=== PATIENT | male | born 1980 | race Caucasian/White ===

== ENCOUNTER 2023-12-19 11:47 | Outpatient (AMB) | payer OTHER, SELFPAY ==
--- NOTE | 2023-12-19 11:51 | MHC.OFFVIS ---
Vital Signs 12/19/23 11:53 Height 5 ft 10 in Weight 255 lb 11.779 oz BMI 36.7 BP 119/87 Blood Pressure Location Lt brachial Position Sitting Pulse 68 Intake Visit Reasons: Colonoscopy Screening Allergies No Known Allergies Allergy (Verified 12/19/23 12:00) HPI HPI Colonoscopy Screening: Details: 43-year-old male here for preprocedural meeting to discuss a screening colonoscopy. He is referred by [facility] in [facility] ELVA Asthma Allergic rhinitis Obesity-BMI greater than 35 Subclinical hypothyroid High cholesterol Hypertension Impaired fasting glucose Anxiety disorder * SURGICAL HISTORY Vasectomy Dental surgery Colonoscopy 5 year ago neg study * ALLERGIES:NKDA * Wengo LABS: none TODAY'S VISIT He had a prior scope 5 year ago that was negative and he HAS a FHX of FATHER and paternal uncle with CRC. No bowel or upper GI problems. He has ELVA and asthma that is well controlled but no cardiac problems. No ID problems. There are no prior problems with anesthesia or sedation.. Again his father and his paternal uncle both had colorectal cancer in their early to mid 70s. [facility], [facility] Surgical History H/O colonoscopy History of dental surgery H/O vasectomy Family History Father Colon cancer Mother Pancreatic cancer Paternal Uncle Colon cancer Maternal Grandmother Breast cancer Paternal Aunt Breast cancer Social History Alcohol intake: current Alcohol intake frequency: holidays/special occasions only Patient Tobacco Use Status: Former Tobacco user Non Cigarette Tobacco use how lon years ago /entered 12/19/23 Substance Use Type: Marijuana Review of Systems Const Denies fatigue, Denies fever(s), Denies night sweats, Denies poor appetite and Denies weight loss Eyes Details: glasses Reports requires corrective lenses ENT Reports Normal hearing present, Denies dental pain, Denies dysphagia, Denies hearing loss, Denies mouth pain, Denies odynophagia, Denies throat swelling, Denies tongue swelling and Reports other (Dentition adequate) Card Reports no additional complaints Resp Reports no additional complaints GI Details: Denies abdominal pain, Denies melena, Denies bloating, Denies hematochezia, Denies constipation, Denies GI cramping, Denies dysphagia, Denies excessive flatus, Denies early satiety, Denies heartburn, Denies diarrhea, Denies nausea, Denies odynophagia, Denies vomiting and Denies hematemesis Skin/Breast Denies pruritus, Denies lesions, Denies rash and Denies jaundice Neuro Reports Normal hearing present and Denies Abnormal speech present Endo Denies fatigue Aller/Immun Denies throat swelling and Denies tongue swelling Physical Exam Vital Signs: Last Vital Signs Pulse 68 12/19/23 11:53 BP 119/87 12/19/23 11:53 BMI result Body Mass Index 36.7 Const General: cooperative, no acute distress, well developed and well groomed Nutritional Appearance: well nourished and obese centrally obese Orientation/consciousness: oriented to person, oriented to place and oriented to time Limitations: No language barrier HEENT Head: Yes normocephalic and Yes atraumatic Eyes General: appearance normal, both eyes and all related structures Pupils: Equal, round and reactive pupils present Neck Neck: Yes normal visual inspection and Yes no lymphadenopathy Thyroid: Thyroid normal Resp Effort & Inspection: normal respiratory effort and able to speak in complete sentences Auscultation: clear to auscultation bilaterally Cardio Rate: regular rate Rhythm: regular rhythm Heart sounds: Normal, physiologic split S2 sound present Peripheral pulses: radial pulses present and posterior tibial pulses present GI Inspection: No distended, No Abdominal panniculus present and Yes obesity Palpation (GI): Soft to palpation, nontender, no guarding, not rigid and No hepatosplenomegaly present Percussion: Yes normal to percussion Auscultation: normal bowel sounds Rectal Exam - Male: Yes deferred Skin General skin exam: no rashes or lesions noted, turgor normal, skin not dry, no jaundice, No spider nevi and no striae Rashes: no rashes Nails: normal Neuro General: oriented to person, oriented to place and oriented to time Cranial nerves: Yes Equal, round and reactive pupils present and Yes Normal hearing present Speech: No Abnormal speech present Extrem General: Yes normal to inspection, No clubbing, No cyanosis and No edema Psych Appearance: grossly normal and well kempt Mental Status: mental status grossly normal Speech and movement: Normal speech and movement present Affect: normal affect Attitude: cooperative Thought process: Normal thought process present and not confabulating Thought content: Normal thought content present Insight: Fair insight present (Psych) Judgement: Fair judgement present (Psych) Assessment & Plan Assessment & Plan (1) Pre-op examination: Code(s): Z01.818 - Encounter for other preprocedural examination Category: Medical (2) ELVA (obstructive sleep apnea): Code(s): G47.33 - Obstructive sleep apnea (adult) (pediatric) Category: Medical (3) Family history of colon cancer in father: Comment: father and his paternal uncle both had colorectal cancer in their early to mid 70s Code(s): Z80.0 - Family history of malignant neoplasm of digestive organs Category: Medical Plan He had a prior scope 5 year ago that was negative and he HAS a FHX of FATHER and paternal uncle with CRC. No bowel or upper GI problems. He has ELVA and asthma that is well controlled but no cardiac problems. No ID problems. There are no prior problems with anesthesia or sedation.. Again his father and his paternal uncle both had colorectal cancer in their early to mid 70s. Orders: Orders Colonoscopy - GI Use Only 12/19/23 Z01.818 - Encounter for other preprocedural examination, Z80.0 - Family history of malignant neoplasm of digestive organs Medications: New sodium,potassium,mag sulfates 17.5-3.13-1.6 gram (Suprep Bowel Prep Kit) 480 mL orally; FOR COLONOSCOPY PREP 354 mL 0RF Coding Level of Care Code New Pt Level 3 (73712) Diagnoses Pre-op examination Z01.818 ELVA (obstructive sleep apnea) G47.33 Family history of colon cancer in father Z80.0
--- NOTE | 2023-12-19 11:51 | MHC.OFFVIS ---
Vital Signs 12/19/23 11:53 Height 5 ft 10 in Weight 255 lb 11.779 oz BMI 36.7 BP 119/87 Blood Pressure Location Lt brachial Position Sitting Pulse 68 Intake Visit Reasons: Colonoscopy Screening Intake Note: Mamadou presents in office for colonoscopy screening. CC: Patient reports that his last colonoscopy was 5 years ago at [facility] [place] [facility]. He has family hx of colon cancer. 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
[2023-12-19 11:53] VITALS: BP 119/87; PULSE 68; BMI 36.7
== END 2023-12-19 12:42 | disposition home or self-care (01) ==
PROVIDERS: Visit Provider Nurse Practitioner
DX: Z01.818 Encounter for other preprocedural examination (principal); G47.33 Obstructive sleep apnea (adult) (pediatric); Z80.0 Family history of malignant neoplasm of digestive organs
CPT/HCPCS: 99203

== ENCOUNTER → 2023-12-19 11:47 | Outpatient (BNVA) | payer OTHER, SELFPAY | PROVIDERS: Visit Provider Nurse Practitioner ==

== ENCOUNTER 2024-02-25 09:46 | Day surgery (SDC) | payer OTHER, SELFPAY ==
[2024-02-21 08:59] VITALS: BMI 36.6
[2024-02-25 10:21] VITALS: BMI 35.9
[2024-02-25 10:39] VITALS: BP 137/84; PULSE 85; RESP 15; TEMP 36.9; O2SAT 97
[2024-02-25] MEDS: Lactated Ringers 1,000 ML 50 ML IVCONT (10:48)
--- NOTE | 2024-02-25 10:56 | MHC.SHP ---
Pre-Procedural Eval Section A - 24 Hr Update-Section A only Date of Service: 02/25/24 The patient is an INPATIENT: No The patient has been examined within 24 hours of the surgical procedure. The History & Physical has been completed within 30 days and I have reviewed it.: No Section B - Complete if H&P > 30 days Chief Complaint: Screening, famiy hx of colon cancer Relevant Family History (Specify if Yes): Yes Relevant Social History: Tobacco Use (Former smoker) Present Medications: see Short Stay Collaborative assessment Medical History: Significant History (ELVA Asthma Allergic rhinitis Obesity-BMI greater than 35 Subclinical hypothyroid High cholesterol Hypertension Impaired fasting glucose Anxiety disorder) History of Previous Operations: Relevant previous surgery/procedure and date(s) (H/O colonoscopy History of dental surgery H/O vasectomy) Allergies: Allergies Allergy/AdvReac Type Severity Reaction Status Date / Time No Known Allergies Allergy Verified 02/25/24 10:20 Review of Systems Sugical H&P ROS: Negative: Constitution, Cardiovascular, Respiratory and Gastrointestinal Exam Surgical H&P Exam: Normal: Heart, Normal: Lungs, Normal: Extremities and Normal: Abdomen Plan Diagnosis/Plan: Unchanged I have reviewed the history and physical and performed a pertinent physical examination on my patient. No changes have occurred unless specified. Time Spent With Patient Time: Total time managing care of this patient today ____ minutes.
--- NOTE | 2024-02-25 12:01 | P.CONAN_ITS ---
HPI - Anesthesia Eval Consult details Narrative: 43 yo male patient for Colonoscopy [facility] Active Problems Active Problems: All Active Problems Family history of colon cancer in father (Acute) Pre-op examination (Acute) Anxiety disorder (Acute) Impaired fasting glucose (Acute) Subclinical hypothyroidism (Acute) Obesity (BMI 30-39.9) (Acute) High cholesterol (Acute) Hypertension (Acute) Allergic rhinitis (Acute) Asthma (Acute) ELVA (obstructive sleep apnea) (Acute)- rarely uses CPAP machine. Does not fit well since weight loss. Will be requesting repeat sleep study at PCP visit Daily marijuana- last 2 days ago Past Medical History Medical History Elevated cholesterol Sleep apnea Asthma HTN (hypertension) Family History Family History Father Colon cancer Mother Pancreatic cancer Paternal Uncle Colon cancer Maternal Grandmother Breast cancer Paternal Aunt Breast cancer Family history of problems with anesthesia: No Surgical History Surgical History H/O colonoscopy History of dental surgery H/O vasectomy History of Problems with Anesthesia: No Social History Social History Alcohol intake: current Alcohol intake frequency: holidays/special occasions only Patient Tobacco Use Status: Former Tobacco user Use of substances other than those prescribed or required for medical reasons: Yes Substance Use Type: Marijuana Substance Use Type Other:: smoked daily--last used sunday afternoon Substance Use Frequency: Daily Are you DNR?: No Advance Directives: No Advance Directives Information Provided: Yes Meds Allergies Allergy/AdvReac Type Severity Reaction Status Date / Time No Known Allergies Allergy Verified 02/25/24 10:20 Active Medications: Current Medications Lactated Ringer's (Lr) 1,000 mls @ 50 mls/hr IVCONT .Q20H DORIAN Last Admin: 02/25/24 10:48 Dose: 50 mls/hr Home Medications ?Medication ?Instructions ?Recorded ?Confirmed ?Last Taken ?Type albuterol sulfate 90 mcg/actuation 2 puff inhalation Q4-6H PRN dyspnea 12/19/23 02/25/24 Unknown History aerosol inhaler amlodipine 5 mg-benazepril 10 mg 1 cap PO DAILY 12/19/23 02/25/24 Unknown History capsule atorvastatin 10 mg tablet 10 mg PO DAILY 12/19/23 02/25/24 Unknown History sertraline 50 mg tablet 50 mg PO DAILY 12/19/23 02/25/24 Unknown History Exam Height,Weight and Vital Signs: Height 5 ft 10 in Weight 113.398 kg Last Vital Signs Temp 98.5 F 02/25/24 10:39 Pulse 85 02/25/24 10:39 Resp 15 02/25/24 10:39 BP 137/84 02/25/24 10:39 Pulse Ox 97 02/25/24 10:39 O2 Del Method Room Air 02/25/24 10:39 Airway Mallampati Class: II TM Dist: >3cm Neck ROM: Full Partial: Upper and Lower Loose/Missing/Broken Teeth: Yes (Partials. Denies broken or loose teeth) Heart: RRR Lungs: CTAB Assessment and Plan Assessment Anesthesia Assessment: Anesthesia Plan Discussed and Chart Reviewed Final Anesthetic Review Family History of Problems with Anesthesia: No History of Problems with Anesthesia: No NPO: Yes ASA Class: III Final Preanesthetic Review: No Changes in Pt Med Stat, Meds/Allgs Chart Reviewed, Consent Obtained/Reviewed and Anes Risks/Benef Reviewed Patient Risk: Intermediate Procedure Risk: Low Assessment/Block/Sedation in SS: Assess/Block/Sedation-SS Anesthetic Plan Anesthetic Plan: TIVA Disposition: Standard PACU
--- NOTE | 2024-02-25 12:40 | P.OPN-COLO_ITS ---
Colonoscopy Operative Note Operative Note Date of Service: 02/25/24 Narrative: COLONOSCOPY TILL CECUM WITH BIOPSIES Pre-op diagnosis: Colon cancer screening, family history of colon cancer (Dad in his late 60's and paternal uncle in his 60's). Post-op diagnosis:? Colon polyp, Diverticulosis, hemorrhoids Endoscopist:? Mariluz Pace MD Anesthesia:?MAC Consent: Indications for the procedure and potential complications of bleeding, perforation, reaction to medications and missed diagnosis were discussed with the patient and informed consent was obtained. Instrument: Olympus CF H 190 L variable stiffness adult colonoscope Monitoring: Vital signs and clinical assessment, intermittent blood pressure monitoring, continuous EKG monitoring, Pulse oximetry and Carbon Dioxide monitoring were done throughout the procedure. Please see anesthesia flowsheet. Colon withdrawl time was 14 minutes. Procedure: The patient was placed in the left lateral decubitis position and pre-procedure medications were administered. After a digital rectal examination of the ano-rectum, the video colonoscope was inserted into the rectum and advanced through the colon to the cecum. The colonoscope was slowly withdrawn in a retrograde panoramic fashion and the colon mucosa was carefully examined including a retroflexed view of the rectum. Findings and interventions are described below. Procedure Difficulty: without difficulty Findings: Terminal Ileum: Not evaluated Cecum: Normal Ascending Colon: Normal Transverse Colon: Normal Descending Colon: Moderate diverticulosis Sigmoid Colon: A 3-4 mm sessile polyp - removed with a cold biopsy. Moderate diverticulosis Rectum: Normal Ano-rectum: Small internal hemorrhoids Colon preparation: Good after copious irrigation and fair in the right colon and rectum with adherent stools which could not be removed by irrigation [place] Bowel Preparation Scale Right colon; 1 Transverse colon: 2 Left colon; 1 (0 = Unprepared colon segment with mucosa not seen due to solid stool that cannot be cleared. 1 = Portion of mucosa of the colon segment seen, but other areas of the colon segment not well seen due to staining, residual stool and/or opaque liquid. 2 = Minor amount of residual staining, small fragments of stool and/or opaque liquid, but mucosa of colon segment seen well. 3 = Entire mucosa of colon segment seen well with no residual staining, small fragments of stool or opaque liquid) Impression and Post Procedure Diagnosis: Colonoscopy Findings: One tiny polyp was removed Moderate diverticulosis seen in the left colon Small hemorrhoids on retroflexed exam. Prep was fair in the right colon and rectum with adherent stools which could not be removed by irrigation Plan: I will send a letter with biopsy results. Repeat Colonoscopy in 1 year due to fair prep in the right colon and rectum. (Dulcolax 2 tablets daily starting 5 day prior to colonoscopy appointment). Above findings were reviewed with the patient and relevant handouts were given in the discharge area.
[2024-02-25 12:45] VITALS: BP 111/76; PULSE 92; RESP 14; TEMP 36.2; O2SAT 96
[2024-02-25 13:00] VITALS: BP 121/85; PULSE 65; RESP 16; TEMP 36.2; O2SAT 100
== END 2024-02-25 13:20 | disposition home or self-care (01) ==
PROVIDERS: PCP Internal Medicine; Visit Provider Internal Medicine Gastroenterology
PROC: 0DJD8ZZ Inspection of Lower Intestinal Tract, Via Natural or Artificial Opening Endoscopic (ICD-10-PCS; CPT 45378; principal; 2024-02-25 11:10)
DX: Z12.11 Encounter for screening for malignant neoplasm of colon (principal); Z80.0 Family history of malignant neoplasm of digestive organs; D12.5 Benign neoplasm of sigmoid colon; K57.30 Diverticulosis of large intestine without perforation or abscess without bleeding; K64.8 Other hemorrhoids; I10 Essential (primary) hypertension; E78.00 Pure hypercholesterolemia, unspecified; E03.8 Other specified hypothyroidism; R73.01 Impaired fasting glucose; J45.909 Unspecified asthma, uncomplicated; E66.9 Obesity, unspecified; Z68.36 Body mass index [BMI] 36.0-36.9, adult; G47.33 Obstructive sleep apnea (adult) (pediatric); F41.9 Anxiety disorder, unspecified; Z98.52 Vasectomy status; Z87.891 Personal history of nicotine dependence
CPT/HCPCS: 45380; 88305; J2003; J2704

== ENCOUNTER → 2024-02-25 09:46 | Outpatient (BNV) | payer OTHER, SELFPAY | PROVIDERS: PCP Internal Medicine; Visit Provider Internal Medicine Gastroenterology | DX: Z12.11 Encounter for screening for malignant neoplasm of colon (principal); Z80.0 Family history of malignant neoplasm of digestive organs; D12.5 Benign neoplasm of sigmoid colon; K57.90 Diverticulosis of intestine, part unspecified, without perforation or abscess without bleeding | CPT/HCPCS: 45380 ==

== ENCOUNTER 2024-04-11 14:17 | Outpatient (AMB) | payer OTHER, SELFPAY ==
--- NOTE | 2024-04-11 14:21 | A.OFFVIS_ITS ---
Vital Signs 04/11/24 14:22 Height 5 ft 10 in Weight 257 lb 7.999 oz BMI 36.9 BP 112/68 Blood Pressure Location Rt brachial Position Sitting Pulse 84 Pulse Source Pulse Oximeter Pulse Oximetry (%) 98 Oxygen Delivery Method Room Air Intake Visit Reasons: s/p colo/ PT Intake Note: ESTABLISHED PATIENT for s/p colo. Poor prep. Chief Complaint; C/O specific questions regarding dietary suggestions / restrictions s/p colo. Pt had dx of diverticulosis and is confused as to the implications and what he should be doing to maintain his health. Pt denies any additional concerns. 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 No bowel or upper GI problems. He has ELVA and asthma that is well controlled but no cardiac problems. No ID problems. There are no prior problems with anesthesia or sedation.. Again his father and his paternal uncle both had colorectal cancer in their early to mid 70s. COLONOSCOPY TODAY'S VISIT He had a prior scope 5 year ago that was negative and he HAS a FHX of FATHER and paternal uncle with CRC. No bowel or upper GI problems. He has ELVA and asthma that is well controlled but no cardiac problems. No ID problems. There are no prior problems with anesthesia or sedation.. Again his father and his paternal uncle both had colorectal cancer in their early to mid 70s. PATHOLOGY RESULTS Diagnosis Colon, sigmoid, polypectomy: Tubular adenoma; negative for high-grade dysplasia or carcinoma; multiple additional levels examined TODAY'S VISIT Patient is here today for follow-up and to discuss colonoscopy results. Patient denies any ill effects from the prep, anesthesia or procedure itself. Patient reports to be feeling well. Denies any melena, hematochezia. Denies any dyspepsia, dysphagia or odynophagia. One tubular adenoma found in sigmoid colon without high-grade dysplasia or carcinoma. Patient had suboptimal prep and will need to repeat colonoscopy in 1 year. Patient had moderate diverticulosis in the left side his colon both in distal and sigmoid colon. Patient denies any abdominal pain or discomfort. Patient reports that he feels like he is moving his bowels every day. No issues with that. Patient admits that couple weeks before he was fasting and only eating for about 4 hours a day. Patient again disclosed that he is worry because of strong family history of CRC. Patient reports that his father and his uncle both diagnosed in their early 60s with CRC. [facility] Medical History (Updated 04/11/24 @ 15:10 by Tayla Ignacio [facility]) Diverticulosis Elevated cholesterol Sleep apnea Asthma HTN (hypertension) Surgical History H/O colonoscopy History of dental surgery H/O vasectomy Family History Father Colon cancer Mother Pancreatic cancer Paternal Uncle Colon cancer Maternal Grandmother Breast cancer Paternal Aunt Breast cancer Social History Alcohol intake: current Alcohol intake frequency: holidays/special occasions only Patient Tobacco Use Status: Former Tobacco user Substance Use Type: Marijuana Review of Systems Const Denies weight gain and Denies weight loss ENT Reports no additional complaints, Denies dysphagia and Denies odynophagia Card Reports no additional complaints Resp Reports no additional complaints GI Denies abdominal pain, Denies belching, Denies melena, Denies bloating, Denies change in bowel habits, Denies dysphagia, Denies excessive flatus, Denies dyspepsia, Denies heartburn, Denies diarrhea, Denies loose stools, Denies nausea, Denies odynophagia and Denies vomiting Reports no additional complaints Musc Reports no additional complaints Neuro Reports no additional complaints Psych Reports no additional complaints Endo Reports no additional complaints Physical Exam Vital Signs: Last Vital Signs Pulse 84 04/11/24 14:22 BP 112/68 04/11/24 14:22 Pulse Ox 98 04/11/24 14:22 Oxygen Delivery Method Room Air 04/11/24 14:22 BMI result Body Mass Index 36.9 Const General: healthy appearing and no acute distress Nutritional Appearance: obese Orientation/consciousness: patient oriented x3 Resp Effort & Inspection: normal respiratory effort, able to speak in complete sentences, no tracheal deviation and symmetric chest movement Auscultation: clear to auscultation bilaterally Cardio Rate: regular rate GI Inspection: Yes normal to inspection, No distended and Yes obesity Palpation (GI): Soft to palpation, not firm, nontender and No hepatosplenomegaly present Auscultation: normal bowel sounds General: Yes no CVA tenderness Back/Spine/Pelvis Back: no CVA tenderness Skin General skin exam: elasticity normal, turgor normal and dry skin Neuro General: patient oriented x3 Psych Appearance: grossly normal Mental Status: mental status grossly normal Assessment & Plan Assessment & Plan (1) Family history of colon cancer in father: Code(s): Z80.0 - Family history of malignant neoplasm of digestive organs Category: Medical (2) Diverticulosis: Code(s): K57.90 - Diverticulosis of intestine, part unspecified, without perforation or abscess without bleeding Category: Medical (3) Status post colonoscopy: Code(s): Z98.890 - Other specified postprocedural states (4) Hemorrhoids without complication: Code(s): K64.9 - Unspecified hemorrhoids Plan Patient will return in 1 year as his prep was suboptimal. One tubular adenoma found without high-grade dysplasia or carcinoma. Family history of CRC. Diverticulosis to left side of his colon. Patient was encouraged to take fiber with pre and probiotic. Increase fluid intake and activity to promote better bowel motility. Fiber diet discussed with patient. List of food high in fiber given to patient. Patient will follow-up in November to discuss prep. He will be due to go for colonoscopy in 1 year. Patient is agreeable to current plan of care and verbalizes understanding of instructions. He was given the opportunity to ask questions and all questions answered. Thank you for allowing me to participate in his care Coding Level of Care Code Est Pt Level 3 (80000) Diagnoses Family history of colon cancer in father Z80.0 Diverticulosis K57.90 Status post colonoscopy Z98.890 Hemorrhoids without complication K64.9 Time Spent (min) 30 Comment 20 minutes spent with patient and additional 10 minutes spent reviewing his records
[2024-04-11 14:22] VITALS: BP 112/68; PULSE 84; O2SAT 98; BMI 36.9
== END 2024-04-11 15:00 | disposition home or self-care (01) ==
PROVIDERS: PCP Internal Medicine; Visit Provider Nurse Practitioner Family
DX: Z80.0 Family history of malignant neoplasm of digestive organs (principal); K57.90 Diverticulosis of intestine, part unspecified, without perforation or abscess without bleeding; Z98.890 Other specified postprocedural states; K64.9 Unspecified hemorrhoids
CPT/HCPCS: 99213

== ENCOUNTER → 2024-04-11 14:17 | Outpatient (BNVA) | payer OTHER, SELFPAY | PROVIDERS: PCP Internal Medicine; Visit Provider Nurse Practitioner Family ==

== ENCOUNTER 2025-02-06 09:02 | Day surgery (SDC) | payer OTHER, SELFPAY ==
--- NOTE | 2025-02-03 14:52 | HO.ANESPROP2 ---
Documented by User: Jody Echeverria NP 02/03/25 14:53 HPI - Anesthesia Eval Consult details Narrative: 44yo M for Colonoscopy PMFSH Active Problems Active Problems: All Active Problems Diverticulosis (Acute) Family history of colon cancer in father (Acute) Pre-op examination (Acute) Anxiety disorder (Acute) Impaired fasting glucose (Acute) Subclinical hypothyroidism (Acute) Obesity (BMI 30-39.9) (Acute) High cholesterol (Acute) Hypertension (Acute) Allergic rhinitis (Acute) Asthma (Acute) ELVA (obstructive sleep apnea) (Acute) Past Medical History Medical History (Updated 04/11/24 @ 15:10 by Tayla Ignacio [facility]) Diverticulosis Elevated cholesterol Sleep apnea Asthma HTN (hypertension) Family History Family History Father Colon cancer Mother Pancreatic cancer Paternal Uncle Colon cancer Maternal Grandmother Breast cancer Paternal Aunt Breast cancer Family history of problems with anesthesia: No Surgical History Surgical History H/O colonoscopy History of dental surgery H/O vasectomy History of Problems with Anesthesia: No Social History Social History Alcohol intake: current Alcohol intake frequency: holidays/special occasions only Patient Tobacco Use Status: Former Tobacco user Tobacco use type: Cigarette Use of substances other than those prescribed or required for medical reasons: Yes Substance Use Type: Marijuana Substance Use Type Other:: SMOKES DAILY Are you DNR?: No Advance Directives: No Advance Directives Information Provided: Yes Meds Allergies Allergy/AdvReac Type Severity Reaction Status Date / Time No Known Allergies Allergy Verified 04/11/24 14:22 Home Medications ?Medication ?Instructions ?Recorded ?Confirmed ?Last Taken ?Type albuterol sulfate 90 mcg/actuation 2 puff inhalation Q4-6H PRN dyspnea 12/19/23 02/04/25 Unknown History aerosol inhaler amlodipine 5 mg-benazepril 10 mg 1 cap PO DAILY 12/19/23 02/04/25 Unknown History capsule atorvastatin 10 mg tablet 10 mg PO DAILY 12/19/23 02/04/25 Unknown History sertraline 50 mg tablet 50 mg PO DAILY 12/19/23 02/04/25 Unknown History Zepbound 12/12/25 12/02/25 History Assessment and Plan Assessment Anesthesia Assessment: Chart Reviewed Final Anesthetic Review Family History of Problems with Anesthesia: No History of Problems with Anesthesia: No Documented by User: Clare Conrad MD 02/06/25 10:02 [facility] Past Medical History Medical History (Updated 04/11/24 @ 15:10 by Tayla Ignacio [facility]) Diverticulosis Elevated cholesterol Sleep apnea Asthma HTN (hypertension) Family History Family History Father Colon cancer Mother Pancreatic cancer Paternal Uncle Colon cancer Maternal Grandmother Breast cancer Paternal Aunt Breast cancer Surgical History Surgical History H/O colonoscopy History of dental surgery H/O vasectomy Social History Social History Alcohol intake: current Alcohol intake frequency: holidays/special occasions only Patient Tobacco Use Status: Former Tobacco user Tobacco use type: Cigarette Use of substances other than those prescribed or required for medical reasons: Yes Substance Use Type: Marijuana Substance Use Type Other:: SMOKES DAILY Are you DNR?: No Advance Directives: No Advance Directives Information Provided: Yes Meds Allergies Allergy/AdvReac Type Severity Reaction Status Date / Time No Known Allergies Allergy Verified 04/11/24 14:22 Home Medications ?Medication ?Instructions ?Recorded ?Confirmed ?Last Taken ?Type albuterol sulfate 90 mcg/actuation 2 puff inhalation Q4-6H PRN dyspnea 12/19/23 02/04/25 Unknown History aerosol inhaler amlodipine 5 mg-benazepril 10 mg 1 cap PO DAILY 12/19/23 02/04/25 Unknown History capsule atorvastatin 10 mg tablet 10 mg PO DAILY 12/19/23 02/04/25 Unknown History sertraline 50 mg tablet 50 mg PO DAILY 12/19/23 02/04/25 Unknown History Zepbound 02/06/25 01/27/25 History Exam Airway Mallampati Class: II TM Dist: >3cm Neck ROM: Full Partial: Upper and Lower Heart: rrr Lungs: cta Assessment and Plan Assessment Anesthesia Assessment: Anesthesia Plan Discussed Final Anesthetic Review NPO: Yes ASA Class: II Final Preanesthetic Review: No Changes in Pt Med Stat, Meds/Allgs Chart Reviewed and Consent Obtained/Reviewed Patient Risk: Low Procedure Risk: Low Anesthetic Plan Anesthetic Plan: MAC: Disposition: Standard PACU
[2025-02-04 11:50] VITALS: BMI 36.9
--- NOTE | 2025-02-06 09:01 | MHC.SHP ---
Pre-Procedural Eval Section A - 24 Hr Update-Section A only Date of Service: 02/06/25 The patient is an INPATIENT: No The patient has been examined within 24 hours of the surgical procedure. The History & Physical has been completed within 30 days and I have reviewed it.: No Section B - Complete if H&P > 30 days Chief Complaint: screening Relevant Family History (Specify if Yes): Yes Relevant Social History: Tobacco Use (Former smoker) Present Medications: see Short Stay Collaborative assessment Medical History: Significant History (Diverticulosis Elevated cholesterol Sleep apnea Asthma HTN (hypertension)) History of Previous Operations: Relevant previous surgery/procedure and date(s) (H/O colonoscopy History of dental surgery H/O vasectomy) Allergies: Allergies Allergy/AdvReac Type Severity Reaction Status Date / Time No Known Allergies Allergy Verified 04/11/24 14:22 Review of Systems Sugical H&P ROS: Negative: Constitution, Cardiovascular, Respiratory and Gastrointestinal Exam Surgical H&P Exam: Normal: Heart, Normal: Lungs, Normal: Extremities and Normal: Abdomen Plan Diagnosis/Plan: Unchanged I have reviewed the history and physical and performed a pertinent physical examination on my patient. No changes have occurred unless specified. Time Spent With Patient Time: Total time managing care of this patient today ____ minutes.
[2025-02-06 09:42] VITALS: BMI 34.3
[2025-02-06 09:55] VITALS: BP 154/77; PULSE 76; RESP 16; TEMP 36.9; O2SAT 98
[2025-02-06] MEDS: Lactated Ringers 1,000 ML 100 ML IVCONT (10:02)
--- NOTE | 2025-02-06 11:20 | HO.OPN-COLON ---
Colonoscopy Operative Note Operative Note Date of Service: 02/06/25 Narrative: COLONOSCOPY TILL CECUM WITH BIOPSIES Pre-op diagnosis: Surveillance for colon polyps. Post-op diagnosis:? Colon polyp, Diverticulosis, hemorrhoids Endoscopist:? Mariluz Pace MD Anesthesia:?MAC Consent: Indications for the procedure and potential complications of bleeding, perforation, reaction to medications and missed diagnosis were discussed with the patient and informed consent was obtained. Instrument: Olympus CF H 190 L variable stiffness adult colonoscope Monitoring: Vital signs and clinical assessment, intermittent blood pressure monitoring, continuous EKG monitoring, Pulse oximetry and Carbon Dioxide monitoring were done throughout the procedure. Please see anesthesia flowsheet. Colon withdrawl time was 14 minutes. Procedure: The patient was placed in the left lateral decubitis position and pre-procedure medications were administered. After a digital rectal examination of the ano-rectum, the video colonoscope was inserted into the rectum and advanced through the colon to the cecum. The colonoscope was slowly withdrawn in a retrograde panoramic fashion and the colon mucosa was carefully examined including a retroflexed view of the rectum. Findings and interventions are described below. Procedure Difficulty: without difficulty Findings: Terminal Ileum: Not evaluated Cecum: Normal Ascending Colon: Normal Transverse Colon: A 3-4 mm sessile polyp - removed with a cold biopsy Descending Colon: Moderate diverticulosis Sigmoid Colon: Moderate diverticulosis Rectum: Normal Ano-rectum: Small internal hemorrhoids Colon preparation: Excellent, after some irrigation. [place] Bowel Preparation Scale Right colon; 3 Transverse colon: 3 Left colon; 3 (0 = Unprepared colon segment with mucosa not seen due to solid stool that cannot be cleared. 1 = Portion of mucosa of the colon segment seen, but other areas of the colon segment not well seen due to staining, residual stool and/or opaque liquid. 2 = Minor amount of residual staining, small fragments of stool and/or opaque liquid, but mucosa of colon segment seen well. 3 = Entire mucosa of colon segment seen well with no residual staining, small fragments of stool or opaque liquid) Impression and Post Procedure Diagnosis: Colonoscopy Findings: One small polyp was removed Moderate diverticulosis seen in the left colon Small hemorrhoids on retroflexed exam. Plan: I will send a letter with biopsy results. Repeat Colonoscopy in 5 years if polyps are adenomatous and due to history of adenomatous colon polyps. Above findings were reviewed with the patient and relevant handouts were given and the discharge area.
[2025-02-06 11:25] VITALS: BP 100/63; PULSE 87; RESP 12; TEMP 36.6; O2SAT 96
[2025-02-06 11:31] VITALS: BP 115/74; PULSE 81; RESP 14; TEMP 36.6; O2SAT 99
== END 2025-02-06 11:46 | disposition home or self-care (01) ==
PROVIDERS: PCP Internal Medicine; Visit Provider Internal Medicine Gastroenterology
PROC: 0DJD8ZZ Inspection of Lower Intestinal Tract, Via Natural or Artificial Opening Endoscopic (ICD-10-PCS; CPT 45378; principal; 2025-02-06 11:00)
DX: Z12.11 Encounter for screening for malignant neoplasm of colon (principal); Z80.0 Family history of malignant neoplasm of digestive organs; Z86.0101 Personal history of adenomatous and serrated colon polyps; K57.30 Diverticulosis of large intestine without perforation or abscess without bleeding; K64.8 Other hemorrhoids; K63.5 Polyp of colon
CPT/HCPCS: 45380; 88305; J2003; J2704

== ENCOUNTER → 2025-02-06 09:02 | Outpatient (BNV) | payer OTHER, SELFPAY | PROVIDERS: PCP Internal Medicine; Visit Provider Internal Medicine Gastroenterology | DX: Z12.11 Encounter for screening for malignant neoplasm of colon (principal); K63.5 Polyp of colon; K57.90 Diverticulosis of intestine, part unspecified, without perforation or abscess without bleeding; K64.8 Other hemorrhoids | CPT/HCPCS: 45380 ==